=== PATIENT | female | born 1975 | race Caucasian/White ===

== ENCOUNTER 2021-10-31 18:00 | Inpatient (IN) | payer OTHER ==
[~2021-10-31] VITALS: Ht 170.2 cm; Wt 69.4 kg
[2021-10-31] MEDS ORDERED: POTASSIUM CHLO10 ME1 PO (20:08)
[2021-10-31] MEDS ORDERED: IMITREX50 MG PO (20:08)
[2021-10-31] MEDS ORDERED: IBUPROFEN800 MG PO (20:09)
[2021-10-31] MEDS ORDERED: LASIX20 MG PO (20:11)
[2021-10-31] MEDS ORDERED: ALLEGRA-D 24 H1 EACH PO (20:11)
[2021-10-31] MEDS ORDERED: PHENERGAN 25 MG25 M1 PO (20:12)
[2021-10-31 20:45] LABS: HEMOGLOBIN 9.9 gm/dl (12.3-15.3); RED BLOOD COUNT 3.44 M/UL (4.00-5.10); WHITE BLOOD COUNT 16.2 K/UL (4.5-11.0)
[2021-10-31] MEDS ORDERED: TYLENOL325 MG PO (20:45)
[2021-10-31] MEDS ORDERED: TRANSDERM-SCOP1 EACH TOP (20:46)
[2021-10-31] MEDS ORDERED: ZOFRAN 4 MG TAB4 MG PO (20:47)
[2021-10-31] MEDS ORDERED: AMITRIPTYLINE H25 MG PO (20:48)
[2021-10-31] MEDS ORDERED: AMLODIPINE BESYL5 MG PO (20:54)
[2021-10-31] MEDS ORDERED: CREON DR 36,001 EACH PO (20:54)
[2021-10-31] MEDS ORDERED: MVT PO (20:56)
[2021-10-31] MEDS ORDERED: PROTONIX40 MG PO (20:57)
[2021-10-31 21:19] LABS: BUN/CREATININE RATIO 7 (0-10)
[2021-11-01 04:07] LABS: HEMOGLOBIN 9.6 gm/dl (12.3-15.3); RED BLOOD COUNT 3.32 M/UL (4.00-5.10); WHITE BLOOD COUNT 17.4 K/UL (4.5-11.0)
[2021-11-01 04:30] LABS: BUN/CREATININE RATIO 8 (0-10)
[2021-11-01] MEDS ORDERED: MULTIVITAMIN1 EACH PO (10:19)
--- NOTE | 2021-11-01 12:28 | NUR ---
AT 1130 I GAVE PATIENT ORDERED 1MG DILAUDID. UPON REASSESSMENT THE PATIENT IS IN TEARS VERBALIZING THAT HER PAIN IS NOT UNDER CONTROL. I NOTIFIED DR. SPEARS AND HE ORDERED TO CHANGE THE DILAUDID FROM 1MG TO 2 MG PRN IV Q2 FOR SEVERE PAIN AND ORDERED PERCOCET 5/325 PRN Q4 FOR MODERATE PAIN. WILL CONTINUE TO MONITOR PATIENT. MD IS AWARE THAT HOME MEDS ARE NOT RECONCILED AND STATED THAT HE WAS NOT WORRIED ABOUT HOME MEDS AND GAVE NO FURTHER ORDERS REGARDING MEDICATIONS.
[2021-11-02 10:51] LABS: HEMOGLOBIN 7.1 gm/dl (12.3-15.3); RED BLOOD COUNT 2.45 M/UL (4.00-5.10); WHITE BLOOD COUNT 26.8 K/UL (4.5-11.0)
[2021-11-02 11:00] LABS: BUN/CREATININE RATIO 12 (0-10)
[2021-11-02 19:21] LABS: BODY FLUID SOURCE PERITONEAL; MONONUCLEAR CELLS 24.3 (75-100); POLYMORPHONUCLEAR % 75.7 (0-25); RBC (AUTOMATED) 700 (0-100000); WBC (AUTOMATED) 940 (0-500)
[2021-11-02 19:35] LABS: LDH, BODY FLUID 216 U/L; TOTAL PROTEIN, BODY FLUID 2.5 gm/dL
[2021-11-02 19:36] LABS: AMYLASE, BODY FLUID 40 U/L
[2021-11-03 03:31] LABS: HEMOGLOBIN 7.3 gm/dl (12.3-15.3); RED BLOOD COUNT 2.58 M/UL (4.00-5.10); WHITE BLOOD COUNT 21.2 K/UL (4.5-11.0)
[2021-11-04 05:32] LABS: BUN/CREATININE RATIO 9 (0-10)
[2021-11-04 09:15] LABS: HEMOGLOBIN 7.4 gm/dl (12.3-15.3); RED BLOOD COUNT 2.63 M/UL (4.00-5.10); WHITE BLOOD COUNT 17.8 K/UL (4.5-11.0)
[2021-11-05 03:22] LABS: BUN/CREATININE RATIO 9 (0-10)
[2021-11-06 04:10] LABS: BUN/CREATININE RATIO 7 (0-10)
[2021-11-07 04:59] LABS: BUN/CREATININE RATIO 6 (0-10)
[2021-11-08 10:27] LABS: HEMOGLOBIN 8.6 gm/dl (12.3-15.3); RED BLOOD COUNT 3.07 M/UL (4.00-5.10); WHITE BLOOD COUNT 14.4 K/UL (4.5-11.0)
[2021-11-08 10:55] LABS: BUN/CREATININE RATIO 4 (0-10)
[2021-11-08] MEDS ORDERED: ROXICODONE TAB 55 MG PO (15:53)
== END 2021-11-08 17:10 | disposition home or self-care (01) | DRG 799 ==
LOC: MED SURG 4 19:15 → PROG CARE 11-02 22:01
PROVIDERS: Internal Medicine Pulmonary Disease; ADMIT Surgery
PROC: 07BP0ZZ Excision of Spleen, Open Approach (ICD-10-PCS; 2021-10-31)
PROC: 0FBG0ZZ Excision of Pancreas, Open Approach (ICD-10-PCS; 2021-10-31)
PROC: 3E03329 Introduction of Other Anti-infective into Peripheral Vein, Percutaneous Approach (ICD-10-PCS; 2021-11-01)
PROC: 0W9B3ZZ Drainage of Left Pleural Cavity, Percutaneous Approach (ICD-10-PCS; 2021-11-02)
PROC: 5A0955A Assistance with Respiratory Ventilation, Greater than 96 Consecutive Hours, High Flow/Velocity Cannula (ICD-10-PCS; 2021-11-02)
PROC: B24BZZZ Ultrasonography of Heart with Aorta (ICD-10-PCS; principal; 2021-11-03)
DX: D73.5 Infarction of spleen (principal); K85.10 Biliary acute pancreatitis without necrosis or infection; A41.9 Sepsis, unspecified organism; J15.9 Unspecified bacterial pneumonia; J80 Acute respiratory distress syndrome; K86.3 Pseudocyst of pancreas; J90 Pleural effusion, not elsewhere classified; K86.1 Other chronic pancreatitis; Z20.822 Contact with and (suspected) exposure to COVID-19; E87.70 Fluid overload, unspecified; I10 Essential (primary) hypertension; F17.210 Nicotine dependence, cigarettes, uncomplicated; Z98.890 Other specified postprocedural states; Z87.01 Personal history of pneumonia (recurrent); Z79.899 Other long term (current) drug therapy
CPT/HCPCS: ECHO; 36415; 36600; 71045; 71046; 71275; 80048; 80053; 80202; 82150; 82803; 83615; 83880; 83986; 84132; 84157; 84311; 85007; 85014; 85018; 85025; 85027; 86140; 86850; 86900; 86901; 87040; 87070; 87205; 89051; 90670; 90733; 93306; 94760; 97110; 97116-GP-CQ; 97161; 97165; 97530; C1729; J0690; J1100; J1170; J1940; J2001; J2185; J2250; J2370; J2405; J2704; J3010; J3370; J7030; J7070; Q9967; U0002